=== PATIENT | female | born 1980 | race Caucasian/White ===

== ENCOUNTER 2017-12-26 05:45 | Observation (INO) | payer OTHER ==
--- NOTE | 2017-12-23 09:08 | PDGENHP ---
History and Physical History and Physical: Assessment and Plan: 1. Endometriosis of pelvic peritoneum Yancy's history, prior laparoscopy, and current exam findings are consistent with persistent/recurrent pelvic endometriosis. She has failed medical management. We reviewed all conservative and surgical options. At the end of our discussion she is interested in surgical intervention. This will be a robotic excision of endometriosis. She is leaning towards hysterectomy if indicated. She and her will discuss this further to ensure they have completed their childbearing. She also would benefit from a mid urethral sling given her stress incontinence and long distance running. 2. Dysmenorrhea 3. Dyspareunia, female 4. Dyschezia 5. Genuine stress incontinence Subjective: Patient ID: Yancy Almaraz is a 37 y.o. female who presents to [facility] for endometriosis. HPI Yancy Almaraz presents for a preoperative visit. She is scheduled for a robotic assisted hysterectomy, BSO, excision of endometriosis, and sling. The risks, benefits, and alternatives were presented and informed consent was obtained. 40 minutes of this 40 minute appointment was spent counceling, reviewing the procedure in detail, and discussing the preoperative and postoperative instructions. Below is a copy of our prior visit note. Yancy is a 37-year-old para 2 woman using condoms for contraception. She presents to discuss pelvic pain and a history of endometriosis. She has always had painful menses since menarche. She was started on a control pill at the age of 17. She then delivered her first child at the age of 19. She continued to have very painful menses and intercourse. She saw Dr. Kathreyn Ramos around 2010 and used Lupron for 3 months. She states this was not beneficial. She then underwent a laparoscopy where she was found to have endometriosis which was fulgurated. I do not have a copy of the operative note nor photos. She does not know the extent of disease. She then had her second child in May 2014. After completing breast-feeding her painful menses returned and continued to worsen. She has tried multiple control pills in addition to a total of 6 months of Lupron. Her cycles are regular. She will bleed 7 days. 3 of the days are heavy when she will use a tampon and pad together having to change them every 4 hours. However she finds tampons uncomfortable. She states she has pain and daily basis in the pelvic area. It is worse in the right lower quadrant. She also has pain in the right lower buttocks which is worse with her menses. She often has to stay home about 2 days each cycle secondary to pain. She also has deep dyspareunia as well as feeling as though her is bumping into something. It often will cause pain lasting 2 days afterwards. She has some deep dyschezia. She does leak urine with activities. She previously was a long- distance runner but has had to discontinue secondary to pain. She is anxious to return to regular exercise. PastMedicalHistory Past Medical History: Diagnosis Date Allergic rhinitis Allergy to pollen Anemia off an on as a teenager Dysmenorrhea Endometriosis history, improved Family history of diabetes mellitus Urinary tract infection Varicella PastSurgicalHistory Past Surgical History: Procedure Laterality Date dental work multiple crowns ENDOMETRIAL ABLATION 10/2011 no complications laparoscopic appedectomy PELVIC LAPAROSCOPY 2011 SINUS SURGERY SINUS SURGERY 03/2010 no complications uretheral dilation remote CURRENT MEDICATIONS: Current Outpatient Prescriptions Medication Sig ibuprofen (ADVIL,MOTRIN) 800 mg tablet Take 1 tablet by mouth 3 times daily as needed for Pain. Take with food. (Patient not taking: Reported on 2017) No current facility-administered medications for this visit. ALLERGIES: Patient has no known allergies. I have reviewed, verified and agree with the past medical, surgical, , family, social and ROS history as documented by the RN today. Objective: Vital Signs: Visit Vitals BP 94/58 Pulse 73 Temp 37.6 C (99.6 F) (Temporal Artery) Resp 16 Ht 1.568 m (5' 1.75") Wt 48.8 kg (107 lb 9.6 oz) SpO2 99% BMI 19.84 kg/m Physical Exam Gen: This is an alert, well developed woman in no distress. Neuro: She moves all extremities. Psych: She is appropriate, oriented, with normal affect. Neck: No thyroid enlargement, adenopathy, or tenderness. Lungs: Clear to ascultation, no wheezes or rales. Heart: Regular rate and rhythm without obvious murmurs. Abdomen: Soft, non-tender, without guarding, rebound, or masses. Extremities: No edema or cyanosis. Pelvic: Normal external genitalia. Non-gaping introitus, vagina without discharge, adequately estrogenized, no significant prolapse. Cervix without lesions or discharge. Uterus normal sized, reduced mobility, tender. Adnexa tender without enlargement. The levators are exquisitely tender. She has tenderness surrounding the cervix especially posteriorly as well as within the posterior cul-de-sac. Both uterosacral ligaments are exquisitely tender. She has no significant prolapse. The exam was limited by pain. The urethra is mobile. She has obvious leakage of urine with strong coughing. DATA: I have reviewed the pertinent medical records. PELVIC ULTRASOUND Indication: Endometriosis and pelvic pain. Findings: The uterus is anterior and measures 8.6 x 4.0 x 5.9 cm. The endometrium measures 6 mm. The left ovary measures 3.9 x 1.6 cm and appears to be adherent to the left posterior lateral aspect of the uterus. The right ovary measures 3.0 x 2.3 cm. Both ovaries also appear to be adherent to the pelvic sidewalls. The cervix appears to be free of the rectum. Impression: Left ovary adherent to the posterior lateral aspect of the uterus. Both ovaries likely adherent to the pelvic sidewalls. No other anatomic abnormality seen. TIME/COMMUNICATION: I personally spent a total of 60 minutes. Of that 40 minutes was counseling/ coordination of patient's care. See my note above for details. Arnoldo Justice MD Board Certified Female Pelvic Medicine and Reconstructive Surgery Director of Minimally Invasive Gynecologic Surgery, [facility] Surgeon in Minimally Invasive Gynecologic Surgery [facility] Surgeon in Robotic Surgery
[2017-12-26] MEDS ORDERED: GABAPENTIN 400 MG CAP PO ONE (06:09)
[2017-12-26] MEDS ORDERED: ceFAZolin 2 GM/SWFI 2 GM/20 ML SYR IVP ONE (06:09)
[2017-12-26] MEDS ORDERED: ACETAMINOPHEN 500 MG TAB PO ONE (06:09)
[2017-12-26] MEDS ORDERED: PHENAZOPYRIDINE HCL 200 MG TAB PO ONE (06:09)
[2017-12-26] MEDS ORDERED: BUPIVACAINE/EPI 0.5% 30 ML SDV ONE (06:47)
[2017-12-26] MEDS ORDERED: MIDAZOLAM 2 MG/2 ML VIAL ONE (07:07)
--- NOTE | 2017-12-26 07:10 | PDHPUP ---
History & Physical Update H&P update statement: This history and physical update is based on an assessment of the patient which was completed after admission or registration (within 24 hours), but prior to the surgery/procedure. H&P update: H&P reviewed & patient examined, no change in patient's condition since H&P completed
[2017-12-26] MEDS ORDERED: fentaNYL 100 MCG/2 ML INJ ONE ×3 (07:14→09:48)
[2017-12-26] MEDS ORDERED: PROPOFOL/EMULSION 500 MG/50 ML BOTTLE IV ONE (07:15)
[2017-12-26] MEDS ORDERED: ALBUMIN 25% 50 ML SOLN IV ONE (07:25)
[2017-12-26] MEDS ORDERED: ALBUMIN 5% 250 ML BOTTLE IV ONE (07:27)
[2017-12-26] MEDS ORDERED: METOCLOPRAMIDE 10 MG/2 ML VIAL ONE (07:37)
[2017-12-26] MEDS ORDERED: METOPROLOL TARTRATE 5 MG/5 ML INJ ONE (07:37)
[2017-12-26] MEDS ORDERED: PHENYLEPHRINE HCL 100 MCG/ML SYR ONE (07:37)
[2017-12-26] MEDS ORDERED: DEXAMETHASONE 4 MG/ML VIAL ONE (07:37)
[2017-12-26] MEDS ORDERED: LIDOCAINE 2% 5 ML SDV ONE (07:37)
[2017-12-26] MEDS ORDERED: SUGAMMADEX SODIUM 200 MG/2 ML VIAL IVP ONE (07:37)
[2017-12-26] MEDS ORDERED: RANITIDINE 50 MG/2 ML VIAL ONE (07:37)
[2017-12-26] MEDS ORDERED: CALCIUM CHLORIDE 1 GM/10 ML INJ ONE (07:37)
[2017-12-26] MEDS ORDERED: ROCURONIUM 50 MG/5 ML VIAL ONE (07:37)
[2017-12-26] MEDS ORDERED: KETOROLAC 30 MG/1 ML SDV ONE (07:37)
[2017-12-26] MEDS ORDERED: ONDANSETRON 4 MG/2 ML VIAL ONE (07:37)
--- NOTE | 2017-12-26 07:46 | PDANEPAE ---
ANE Past Medical History - Cardiovascular History Hx Hypertension: No Hx Arrhythmias: No Hx Chest Pain: No Hx Coronary Artery / Peripheral Vascular Disease: No Hx CHF / Valvular Disease: No Hx Palpitations: No - Pulmonary History Hx COPD: No Hx Asthma/Reactive Airway Disease: No Hx Recent Upper Respiratory Infection: No Hx Oxygen in Use at Home: No Hx Sleep Apnea: No Sleep Apnea Screening Result - Last Documented: Negative - Neurologic History Hx Cerebrovascular Accident: No Hx Seizures: No Hx Dementia: No - Endocrine History Hx Diabetes: No - Renal History Hx Renal Disorders: No - Liver History Hx Hepatic Disorders: No - Neurological & Psychiatric Hx Hx Neurological and Psychiatric Disorders: No - Cancer History Hx Cancer: No - Congenital Disorder History Hx Congenital Disorders: No - GI History Hx Gastrointestinal Disorders: No - Other Health History Other Health History: none - Chronic Pain History Chronic Pain: No - Surgical History Prior Surgeries: sinus surgery 2009. endometriosis, appendectomy ANE Review of Systems Review of Systems: - Exercise capacity METS (RN): 4 METS ANE Patient History - Allergies Allergies/Adverse Reactions: Sulfa (Sulfonamide Antibiotics) Allergy (Verified 12/06/17 09:27) gi upset - Home Medications Home Medications: Ibuprofen [Motrin (*)] 200 mg PO DAILY PRN 12/05/17 [Last Taken 12/05/17] Melatonin [Melatonin 1 mg] 1 mg PO HS PRN 12/05/17 [Last Taken 12/05/17] - NPO status NPO Since - Liquids (Date): 12/26/17 NPO Since - Liquids (Time): 05:00 NPO Since - Solids (Date): 12/25/17 NPO Since - Solids (Time): 20:30 - Smoking Hx Smoking Status: Never smoked - Family Anes Hx Family Hx Anesthesia Complications: none ANE Labs/Vital Signs - Vital Signs Blood Pressure: 116/69 Heart Rate: 115 Respiratory Rate: 16 O2 Sat (%): 96 Height: 157.48 cm Weight: 49.895 kg ANE Physical Exam - Airway Neck exam: FROM Mallampati Score: Class 1 Mouth exam: normal dental/mouth exam - Pulmonary Pulmonary: no respiratory distress, no rales or rhonchi, clear to auscultation - Cardiovascular Cardiovascular: regular rate and rhythym, tachycardia - ASA Status ASA Status: II ANE Anesthesia Plan Anesthesia Plan: general endotracheal anesthesia
[2017-12-26] MEDS ORDERED: MEPERIDINE 25 MG/ML SYR IVP PRN ×2 (08:05→10:14)
[2017-12-26] MEDS ORDERED: LR 500 ML IV PRN ×2 (08:05→10:14)
[2017-12-26] MEDS ORDERED: NALOXONE HCL 0.4 MG/ML INJ IVP PRN ×2 (08:05→10:14)
[2017-12-26] MEDS ORDERED: ONDANSETRON 4 MG/2 ML VIAL IVP PRN ×3 (08:05→10:14)
[2017-12-26] MEDS ORDERED: DEXAMETHASONE 4 MG/ML VIAL IVP PRN ×2 (08:05→10:14)
[2017-12-26] MEDS ORDERED: METOCLOPRAMIDE 10 MG/2 ML VIAL IVP PRN ×2 (08:05→10:14)
[2017-12-26] MEDS ORDERED: DIAZEPAM 5 MG/ML 1 ML SYR IVP PRN ×2 (08:05→10:14)
[2017-12-26] MEDS ORDERED: ALBUTEROL 3 ML DEYVIAL IH PRN ×2 (08:05→10:14)
[2017-12-26] MEDS ORDERED: PROMETHAZINE HCL 25 MG/ML INJ IVP PRN ×3 (08:05→10:14)
[2017-12-26] MEDS ORDERED: LIDOCAINE HCL 160 MG/4 ML LTA KIT TP ONE (08:27)
[2017-12-26] MEDS ORDERED: ONDANSETRON DISINTEGRATING 4 MG TAB PO PRN (09:09)
--- NOTE | 2017-12-26 09:13 | POSTOPPROG ---
Post Op Note Date of Operation: 12/26/17 Surgeon: Arnoldo Justice Rrt: Joanie Wayne Anesthesiologist: Elizabeth Joseph Anesthesia: GET(General Endotracheal) Pre-op Diagnosis: Endometriosis, stress incontinence Post-op Diagnosis: Same Procedure: Robotic hyst, endo, TOT sling, cysto Findings: Ureters function at end of case Inf/Abcess present in the surg proc area at time of surgery?: No EBL: Minimal Complications: None Specimen(s): Uterus, tubes, endometriosis
[2017-12-26] MEDS ORDERED: MEPERIDINE 25 MG/ML SYR ONE (09:19)
[2017-12-26] MEDS ORDERED: LR 1,000 ML IV SCH (09:30)
[2017-12-26] MEDS: fentaNYL 100 MCG/2 ML INJ IVP PRN ×2 (09:49→10:11)
[2017-12-26] MEDS ORDERED: HYDROCODONE/APAP 5/325 TAB PO PRN (10:14)
[2017-12-26] MEDS ORDERED: ACETAMINOPHEN 500 MG TAB PO PRN (10:14)
[2017-12-26] MEDS ORDERED: HYDROmorphONE/DILAUDID 2 MG/ML INJ IVP PRN (10:14)
[2017-12-26] MEDS ORDERED: fentaNYL 100 MCG/2 ML INJ IVP PRN (10:14)
[2017-12-26] MEDS ORDERED: oxyCODONE IR 5 MG TAB PO PRN (10:14)
--- NOTE | 2017-12-26 10:14 | POSTANESTH ---
Post Anesthetic Evaluation Cardiovascular Status: Normal, Stable, Similar to Pre-Op Cond Respiratory Status: Normal, Stable, Similar to Pre-op Cond. Level of Consciousness/Mental Status: Can Participate in Eval Pain Control: Adequate, Prn Tx Ordered Nausea/Vomiting Control: Adequate, Prn Tx Ordered Complications Possibly Related to Anesthesia: None Noted
[2017-12-26] MEDS: HYDROmorphONE/DILAUDID 2 MG/ML INJ IVP PRN (12:25)
[2017-12-26] MEDS: HYDROCODONE/APAP 5/325 TAB PO PRN ×2 (14:14→18:19)
--- NOTE | 2017-12-26 14:17 | GOP ---
[f rep st] OPERATIVE REPORT DATE OF OPERATION: 12/26/2017 SURGEON: Arnoldo Justice MD DAIRY SPECIALIST: Joanie Wayne CFA ANESTHESIA: General. PREOPERATIVE DIAGNOSIS: 1. Endometriosis. 2. Dysmenorrhea. 3. Cyclic pelvic pain. 4. Stress urinary incontinence. 5. Second-degree uterine prolapse. POSTOPERATIVE DIAGNOSIS: 1. Endometriosis. 2. Dysmenorrhea. 3. Cyclic pelvic pain. 4. Stress urinary incontinence. 5. Second-degree uterine prolapse. PROCEDURE PERFORMED: 1. Robotic-assisted total laparoscopic hysterectomy, bilateral salpingectomy. 2. Bilateral uterosacral ligament colpopexy. 3. Bilateral ureterolysis. 4. Excision of endometriosis and posterior cul-de-sac, bilateral ovarian fossa. 5. Transobturator sling. 6. Cystoscopy. FINDINGS: SPECIMENS: Uterus, bilateral tubes, and peritoneum with endometriosis. ESTIMATED BLOOD LOSS: Scant. DESCRIPTION OF PROCEDURE: The patient was taken to the operating room. She was identified. General anesthesia was administered and found to be adequate. She was placed in the lithotomy position and prepared and draped in normal sterile fashion. A Quipare uterine manipulator was placed into the endom etrial cavity and sutured to the cervix. A Stone catheter was then placed. A 1 cm infraumbilical incision was made with a scalpel. The Veress needle with CO2 gas flowing was a dvanced into the peritoneal cavity. The abdomen was then insufflated with carbon dioxide gas. The 1 2 mm trocar, followed by the laparoscope were then inserted. The upper abdomen was unremarkable. Th ere was no evidence of endometriosis on either diaphragm, stomach, liver, or gallbladder. Two latera l ports were placed in the right, one in the left under direct visualization. She then was placed in Trendelenburg position and the da Franchesca robot docked on the left side. The instruments were then br ought into the abdominal cavity under direct visualization. She was found to have endometriosis in t he posterior cul-de-sac and bilateral ovarian fossa. However, both ovaries appeared relatively healt hy. As a result, they were left in place, per the patient's request. The left fallopian tube was se parated along the mesosalpinx. The utero-ovarian ligament, followed by the round ligament were then cauterized and transected. The anterior leaf of the broad ligament was then incised over the left ut erine vessels and across the cervix. The bladder was gently dissected off the cervix and upper vagin a. The left uterine vasculature was then cauterized and transected. The exact procedure was perform ed on the patient's right side. A circumferential colpotomy incision was then made with the alli nichole rs and the specimens removed through the vagina. The posterior cul-de-sac peritoneum from the distal rectum up to the cervix was excised. A bilateral ureterolysis was required to safely remove the end ometriosis overlying both ureters. The peritoneum at the pelvic brim had been incised. The ureters were gently dissected free from the pelvic brim all the way down to the bladder. The entire ovarian fossa peritoneum down to the cervix was completely excised and sent to Pathology. The vaginal cuff was then closed with a running suture of 0 V-Loc 180. A bilateral uterosacral ligam ent colpopexy was performed by attaching the lateral aspect of the vaginal cuff to the ipsilateral ut erosacral ligaments near their insertion into the coccygeal-sacrospinous ligament complexes. A bilat eral ovariopexy was performed given cyclic pelvic pain. The ovaries were attached to the ipsilateral round ligaments near the internal inguinal ring with 3-0 Vicryl Rapide suture. The pelvis was irrig ated with sterile saline and hemostasis was present. The robot was then undocked. The fascia was cl osed with 0 Vicryl, skin with 4-0 Monocryl and surgical adhesive. A mid urethral incision was then made with a scalpel. Tunnels were created bilaterally out to the ob turator internus muscles. Skin incisions were made over the obturator notches. The Halo trocar was placed through the left skin incision, redirected around the ischial pubic rami and out through the v aginal incision using a vaginal finger as a guide. The lateral sulci were examined and no evidence t hat vaginal injury had occurred. The sling was then attached and brought out along the same course. The exact same procedure was performed on the patient's right side. The sling was then adjusted to allow a small mid urethral gap. The vaginal epithelium was closed with 2-0 Vicryl, skin with 4-0 Mon ocryl. Cystoscopy was then performed. Both ureters had vigorous jets of urine. There was no evidence of bl adder nor urethral injury seen. No sutures nor mesh were seen within the bladder, nor urethra. No o bvious pathology was seen. Anesthesia was reversed and the patient taken to the PACU awake, in stabl e condition. COMPLICATIONS: None. DISPOSITION: Patient stable, to PACU. /[id number]/MODL
[2017-12-26] MEDS: KETOROLAC 30 MG/1 ML SDV IVP SCH ×2 (15:07→20:50)
[2017-12-26] MEDS: SIMETHICONE 80 MG TAB CHEW PO SCH ×3 (15:36→22:11)
[2017-12-26] MEDS: oxyCODONE IR 5 MG TAB PO PRN (20:42)
[2017-12-26] MEDS: DOCUSATE SODIUM 100 MG CAP PO SCH (20:48)
[2017-12-26] MEDS ORDERED: MELATONIN 3 MG TAB PO PRN (21:00)
[2017-12-27] MEDS: oxyCODONE IR 5 MG TAB PO PRN ×4 (00:35→12:50)
[2017-12-27] MEDS: HYDROmorphONE/DILAUDID 2 MG/ML INJ IVP PRN (01:59)
[2017-12-27] MEDS: KETOROLAC 30 MG/1 ML SDV IVP SCH ×2 (03:38→09:41)
[2017-12-27] MEDS ORDERED: AMMONIA AROMATIC 1 EACH AMP IH ONE (06:27)
[2017-12-27] MEDS: DOCUSATE SODIUM 100 MG CAP PO SCH (08:44)
[2017-12-27] MEDS: SIMETHICONE 80 MG TAB CHEW PO SCH (08:44)
[2017-12-27] MEDS ORDERED: KETOROLAC 30 MG/1 ML SDV IVP ONE (09:45)
[2017-12-27 10:52] VITALS: BP 95/59
[2017-12-27] MEDS ORDERED: KETOROLAC 30 MG/1 ML SDV IVP SCH (12:00)
--- NOTE | 2017-12-27 15:44 | GDS ---
[f rep st] DISCHARGE SUMMARY DISCHARGE DIAGNOSIS: 1. Endometriosis. 2. Dysmenorrhea. 3. Stress urinary incontinence. PROCEDURES: 1. Robotic-assisted total laparoscopic hysterectomy, bilateral salpingectomy. 2. Excision of endometriosis. 3. Bilateral ureterolysis. 4. Bilateral ovarian pexy. 5. Transobturator sling. 6. Cystoscopy. HISTORY: Yancy is a 37-year-old female with pelvic pain and endometriosis. [facility] on 12/26/2017, where she underwent the above-mentioned procedures without complications. Her postoperative course was uneventful. The morning after surgery, she was ambulating, voiding, and tolerating a general diet. She was discharged home with ibuprofen and [place] for pain. I was called in to an emergency surgery in the morning. I spoke to her on the phone and she requested discharge from the hospital. She then went immediately to my office to see me in the office on her way home. Her exam was completely benign. We went over her postoperative instructions and precautions. She gallagher s a followup appointment in 2 weeks. /[id number]/MODL
== END 2017-12-27 13:00 | disposition home or self-care (01) ==
LOC: EEVIPCON 05:45 → F3E 05:45 → FOB 10:35
PROVIDERS: ADMIT Obstetrics & Gynecology; ATTEND Obstetrics & Gynecology
PROC: 0UBC8ZZ Excision of Cervix, Via Natural or Artificial Opening Endoscopic (ICD-10-PCS; principal; 2017-12-26 07:15)
PROC: 0UT7FZZ Resection of Bilateral Fallopian Tubes, Via Natural or Artificial Opening With Percutaneous Endoscopic Assistance (ICD-10-PCS; principal; 2017-12-26 07:15)
PROC: 0UUG4JZ Supplement Vagina with Synthetic Substitute, Percutaneous Endoscopic Approach (ICD-10-PCS; principal; 2017-12-26 07:15)
PROC: 0UB28ZX Excision of Bilateral Ovaries, Via Natural or Artificial Opening Endoscopic, Diagnostic (ICD-10-PCS; principal; 2017-12-26 07:15)
PROC: 0US28ZZ Reposition Bilateral Ovaries, Via Natural or Artificial Opening Endoscopic (ICD-10-PCS; principal; 2017-12-26 07:15)
PROC: 0UBF4ZX Excision of Cul-de-sac, Percutaneous Endoscopic Approach, Diagnostic (ICD-10-PCS; principal; 2017-12-26 07:15)
PROC: 8E0W8CZ Robotic Assisted Procedure of Trunk Region, Via Natural or Artificial Opening Endoscopic (ICD-10-PCS; principal; 2017-12-26 07:15)
PROC: 0UT9FZZ Resection of Uterus, Via Natural or Artificial Opening With Percutaneous Endoscopic Assistance (ICD-10-PCS; principal; 2017-12-26 07:15)
PROC: 0TUC0JZ Supplement Bladder Neck with Synthetic Substitute, Open Approach (ICD-10-PCS; principal; 2017-12-26 07:15)
DX: N80.3 Endometriosis of pelvic peritoneum (principal); N94.6 Dysmenorrhea, unspecified; R10.2 Pelvic and perineal pain; N39.3 Stress incontinence (female) (male); N81.2 Incomplete uterovaginal prolapse; N94.12 Deep dyspareunia; Z87.440 Personal history of urinary (tract) infections; Z83.3 Family history of diabetes mellitus; Z88.2 Allergy status to sulfonamides
CPT/HCPCS: 57288; 57425; 58571; 58662; 58679; G0378; C1771; J0690; J1100; J1170; J1885; J2175; J2250; J2370; J2405; J2704; J2765; J2780; J3010; P9041; P9047